=== PATIENT | female | born 1965 | race Caucasian/White ===

== ENCOUNTER → 2017-11-16 | Outpatient (CLI) | payer MEDICAID ==
[2017-11-16 11:34] LABS: EOS # 0.1 (0.04-0.40); EOS % 1.4 % (1.0-5.0); HEMATOCRIT 54.1 % (37.0-47.0); HEMOGLOBIN 17.7 g/dL (12.5-16.0); LYMPH# 2.7 (1.50-4.00); MEAN CELL VOLUME 95 fl (78-100); MEAN CORPUSCULAR HEMOGLOBIN 31 pg (27-31); MEAN CORPUSCULAR HGB CONC 33 g/dL (33-37); MEAN PLATELET VOLUME 10.2 fl (7.4-10.4); MONO # 0.9 (0.20-0.80); PLATELET COUNT 232 K/mm3 (130-400); RED BLOOD COUNT 5.72 M/mm3 (4.10-5.30); RED CELL DISTRIBUTION WIDTH 13.9 % (11.5-14.5); WHITE BLOOD COUNT 8.8 K/mm3 (4.8-10.8)
[2017-11-16 11:50] LABS: ALBUMIN 4.4 g/dL (3.5-5.0); BUN/CREATININE RATIO 9.1 (6.0-26.0); CALCIUM 9.3 mg/dL (8.4-10.2); POTASSIUM 4.4 mmol/L (3.6-5.0); TOTAL BILIRUBIN 0.3 mg/dL (0.2-1.3)
== END ==
LOC: RAD 10:45 → MAMMO 10:45 → LAB 10:53 → MAMMO 10:53
PROVIDERS: Family Medicine
DX: Z12.31 Encounter for screening mammogram for malignant neoplasm of breast (principal); Z79.899 Other long term (current) drug therapy

== ENCOUNTER → 2019-04-12 | Outpatient (CLI) | payer MEDICAID | LOC: MAMMO 08:49 | DX: Z12.31 Encounter for screening mammogram for malignant neoplasm of breast (principal) ==

== ENCOUNTER 2020-05-28 09:31 | Inpatient (IN) | payer MEDICAID ==
[~2020-05-28] VITALS: Ht 165.1 cm; Wt 89.0 kg
[~2020-05-28 09:31] MED LIST: BENADRYL PO; BUSPAR 15MG TAB15 MG PO; CELEXA 20MG20 MG/TA1 PO; CLONAZEPAM2 MG PO; FERROUS SULFAT325 M4 PO; FOLIC ACID1 MG PO; HYDROXYZINE HCL25 M1 PO; NEURONTIN300 M1 PO; OXYCODONE HCL10 M1 PO; PREDNISONE20 M1 PO; PROAIR HFA0.09 MG/AC IH; SEROQUEL 1100 MG/TAB PO; SEROQUEL300 M1 PO; WELLBUTRIN 75MG75 MG PO; ZANAFLEX CAPSULE2 MG PO; ZITHROMAX Z PA250 MG PO
[2020-05-28 10:26] LABS: HEMATOCRIT 54.3 % (37.0-47.0); MEAN CELL VOLUME 92 fl (78-100); MEAN CORPUSCULAR HEMOGLOBIN 31 pg (27-31); MEAN CORPUSCULAR HGB CONC 33 g/dL (33-37); MEAN PLATELET VOLUME 11.1 fl (7.4-10.4); PLATELET COUNT 170 K/mm3 (130-400); RED BLOOD COUNT 5.91 M/mm3 (4.10-5.30); WHITE BLOOD COUNT 17.6 K/mm3 (4.8-10.8)
[2020-05-28 10:36] LABS: LYMPHOCYTE 9 % (20-51); MONOCYTE 6 % (3-10); NEUTROPHILS 85 % (42-75)
[2020-05-28 10:40] LABS: ALBUMIN 4.3 g/dL (3.5-5.0); POTASSIUM 3.9 mmol/L (3.5-5.1); SODIUM 141 mmol/L (136-145)
[2020-05-28 10:41] LABS: CALCIUM 9.5 mg/dL (8.3-10.5)
[2020-05-28 10:43] LABS: GLUCOSE 133 mg/dL (65-105); TOTAL PROTEIN 7.2 g/dL (6.4-8.3)
[2020-05-28 10:44] LABS: CARBON DIOXIDE 26 mmol/L (22-29); TOTAL BILIRUBIN 0.8 mg/dL (0.2-1.2)
[2020-05-28 10:48] LABS: ALCOHOL IN-HOUSE < 10 mg/dL (<10); AST-SGOT 37 U/L (5-34)
[2020-05-28 10:49] LABS: ALT/SGPT 41 U/L (0-55)
[2020-05-28 10:50] LABS: LIPASE 320 U/L (8-78)
[2020-05-28 11:06] LABS: TROPONIN-I < 0.03 ng/mL (<0.030)
[2020-05-28 11:26] LABS: URINE APPEARANCE CLOUDY; URINE BILIRUBIN NEGATIVE (NEGATIVE); URINE BLOOD 50 ery/uL (NEGATIVE); URINE COLOR YELLOW; URINE GLUCOSE NEGATIVE (NEGATIVE); URINE KETONE 2+ (NEGATIVE); URINE LEUKOCYTE ESTERASE TRACE (NEGATIVE); URINE NITRATE NEGATIVE (NEGATIVE); URINE PROTEIN(semi-quant) 2+ mg/dL (NEGATIVE); URINE UROBILINOGEN NORMAL (NORMAL)
[2020-05-28 11:27] LABS: URINE MUCUS PRESENT (NOT PRESENT)
[2020-05-28 14:20] VITALS: BP 138/54
--- NOTE | 2020-05-28 14:20 | NUR ---
Patient brought to room 206 from ed in . Patient is alert and oriented, c/o of abd pain, breathing is eval and unlabored. Orders and medications reviewed. Patient is NPO. IV fluids infusing in left AC. Patient denies nausea, tarado given. Call light in reach, will monitor.
[2020-05-28 14:32] VITALS: BP 138/54
--- NOTE | 2020-05-28 16:18 | NUR ---
Patient is sleeping in room. IV fluiuds infusing per MAR. Call light is in reach, will continue to monitor.
[2020-05-28 17:24] VITALS: BP 126/80
[2020-05-28 17:42] VITALS: BP 126/80
--- NOTE | 2020-05-28 19:14 | NUR ---
Report given to ALCON Fernandez.
--- NOTE | 2020-05-28 20:30 | NUR ---
PT IS NOT ORIENTATED TO PLACE. CAN STATE IN HOSPITAL BED. SHE IS ORIENTATED TO PERSON. SHE WAS INCONTINENT OF URINE. WAS ABLE TO AMBULATE TO RESTROOM WITH CANE AND STANDBY ASSISTANCE. IV IS PATENT WITHOUT SWELLING OR PAIN. PT DOES APPEAR TO BE SLURRING SPEAK BUT FOLLOWS COMMANDS.
[2020-05-28 22:00] VITALS: BP 120/64
--- NOTE | 2020-05-28 22:00 | NUR ---
NOTED THAT SATURATION WAS 90% WHILE PT IS AWAKE. DISCUSSED WITH CHEIKH AND AN ORDER WAS PLACED FOR O2. O2 PER NC WAS PLACED ON PT. SATURATION 95%.
[2020-05-29 02:00] VITALS: BP 121/73
--- NOTE | 2020-05-29 02:44 | NUR ---
PT C/O PAIN 7/10 2MG OF MORPHINE GIVEN IV.
[2020-05-29 06:00] VITALS: BP 123/80
[2020-05-29 06:03] LABS: EOS # 0.1 (0.04-0.40); EOS % 1.1 % (1.0-5.0); HEMATOCRIT 46.4 % (37.0-47.0); HEMOGLOBIN 15.2 g/dL (12.5-16.0); LYMPH# 2.4 (1.50-4.00); MEAN CELL VOLUME 94 fl (78-100); MEAN CORPUSCULAR HEMOGLOBIN 31 pg (27-31); MEAN CORPUSCULAR HGB CONC 33 g/dL (33-37); MEAN PLATELET VOLUME 11.1 fl (7.4-10.4); MONO # 1.3 (0.20-0.80); NEU # 6.8 (1.40-6.50); PLATELET COUNT 142 K/mm3 (130-400); RED BLOOD COUNT 4.92 M/mm3 (4.10-5.30); RED CELL DISTRIBUTION WIDTH 14.2 % (11.5-14.5); WHITE BLOOD COUNT 10.7 K/mm3 (4.8-10.8)
[2020-05-29 06:20] LABS: POTASSIUM 3.7 mmol/L (3.5-5.1)
--- NOTE | 2020-05-29 06:26 | NUR ---
PT UP TO RESTROOM WANTING TO SIT ON TOILET FOR AWHILE. STATES WILL PULL STRING WHEN READY TO HEAD BACK TO BED.
--- NOTE | 2020-05-29 06:36 | NUR ---
PT REPORTING PAIN 03/28. MORPHINE 2 MG IVP GIVEN.
--- NOTE | 2020-05-29 07:03 | NUR ---
REPORT GIVEN TO PENNY RONDON
--- NOTE | 2020-05-29 08:40 | NUR ---
PATIENT PLACED ON ROOM AIR AT THIS TIME.
--- NOTE | 2020-05-29 09:22 | NUR ---
PATIENT HEARD YELLING OUT FOR HELP AT NURSES STATION. THIS NURSE PROMPTLY IN ROOM. UPON ENTERING ROOM PATIENT LYING IN BED WITH EHAD OF BED ELEVATED. STATES"MY FOOT HURTS. THE ARCH OF MY FOOT HURTS ALL THE SUDDEN. PATIENT SOCK REMOVED NO NOTICABLE INJURY TO AREA. PATIENT STATES "SOMETIMES THIS HAPPENS TO ME MY ARCH OF MY FOOT STARTS TO HURT" PATIENT NO LONGER REPORTING ANY PAIN AFTER A MINUTE OR 2. PATIENT STATES TO THIS NURSE "CAN I HAVE MY OXYGEN BACK ON" ASKED PATIENT IF SHE WAS EXPERIENCING SHORTNESS OF BREATH STATES "YES I AM" RESPIRATIONS UNLABORED. [id number]% ON ROOM AIR. PATIENT'S HEART RATE 48 RADIAL. PATIENT SEEMS A LITTLE MORE DROWSY THAN WHEN IN PATIENT'S ROOM PRIOR TO GIVING MEDICATIONS. PATIENT REPORTS HAVING PAIN REQUESTING PAIN MEDICATION. PATIENT INFORMED MEDICATION IS NOT DUE UNTIL 1030. PATIENT PLACED ON OXYGEN 2L. SP02 UP TO 93% ON 2L. HEART RATE 44. BLOOOD PRESSURE 125/77 RR 18. ASKED PATIENT IF SHE WAS EXPERIENCING ANY CHEST PAIN STATES "IT FEELS YAW TIGHT, WHEN I COUGH I HAVE SOME DISCOMFORT" Rogelio MENDOZA APRN NOTIFIED.
[2020-05-29 10:07] VITALS: BP 126/81
--- NOTE | 2020-05-29 10:55 | NUR ---
Rogelio MENDOZA FRUIT GRADING SUPERVISOR IN TO SEE PATIENT AT THIS TIME.
[2020-05-29 12:17] LABS: D-DIMER 2.15 mg/L FEU (0.15-0.50)
[2020-05-29 14:16] VITALS: BP 138/80
[2020-05-29 18:15] VITALS: BP 143/85
--- NOTE | 2020-05-29 18:16 | NUR ---
Gave crayons and coloring pages for Jackie.
--- NOTE | 2020-05-29 19:45 | NUR ---
Report received from Merline RONDON. Resting supine in bed watching TV. Oxygen in place at 2L/NC. Rates pain to abdomen area 03/28. Also requesting PRN inhaler. INT patent to Arjun GONGORA. Assessment completed. HS medications give now per request. PRN AZO, Albuterol inhaler and IV Fentanyl given at this time.
[2020-05-29 22:56] VITALS: BP 109/65
--- NOTE | 2020-05-30 01:06 | NUR ---
Resting well. Calls for assist to BR PRN. Has been incontinent of urine. HR low to mid 50's.
[2020-05-30 02:17] VITALS: BP 109/56
[2020-05-30 05:50] VITALS: BP 134/80
--- NOTE | 2020-05-30 06:15 | NUR ---
Rested well all shift. No further request for analgesic. HR 50's-low 60's all night.
--- NOTE | 2020-05-30 06:58 | NUR ---
Report to Aimee RONDON.
--- NOTE | 2020-05-30 07:50 | NUR ---
WALKING IN ROOM WITH ROUTER OPERATOR PIN. REPORTS DISCOMFORT TO LLQ; RATES 9/10. REPORTS HAVING A RECENT BM AND THOUGHT THIS WOULD RELIEVE DISCOMFORT. PRN FENTANYL PROVIDED. GAIT STEADY; USES CANE. ALSO REPORTS MID BACK PAIN. TALKATIVE. PATIENT MENTIONS RECENTLY CUTTING BACK ON SMOKING AND SUBSEQUENTLY HAS A COUGH. SPUTUM THICK AND PALE GREEN. FINE CRACKLES TO BILAT LUNG BASES. OXYGEN IN PLACE PER NC AND DECREASED FROM 2LPM TO 1LPM.
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
--- NOTE | 2020-05-30 08:50 | NUR ---
HOB ELEVATED. REPORTS DECREASED PAIN. WHEN ASKED TO RATE ON NUMERICAL SCALE, PATIENT STATES "WELL I'M NOT MOVING AROUND RIGHT NOW."
[2020-05-30 09:44] VITALS: BP 143/84
--- NOTE | 2020-05-30 11:03 | NUR ---
SA02 93% ON 1LPM VIA NC. OXYGEN TURNED OFF AT THIS TIME.
--- NOTE | 2020-05-30 12:58 | NUR ---
IN BED ON RT SIDE. OXYGEN REMAINS OFF. ROOM AIR SATURATION IS 92% WITH PULSE 61. RESP EVEN AND UNLABORED. PRN PO PAIN MED PROVIDED FOR LT LOW BACK DISCOMFORT.
--- NOTE | 2020-05-30 13:37 | NUR ---
PATIENT AMBULATES IN HALLWAY WITHOUT OXYGEN. ROOM AIR SATURATION DROPPED TO 89% BRIEFLY, BUT FOR THE MOST PART, STAYED 91-92% ON ROOM AIR. CHARLES HOLMAN NOTIFIED.
[2020-05-30 13:52] VITALS: BP 126/81
--- NOTE | 2020-05-30 14:45 | NUR ---
PATIENT WOULD LIKE TO DISCHARGE HOME. STATES "I'M NOT ON OXYGEN ANYMORE. THERE REALLY IS NO REASON TO BE HERE. I NEED TO KNOW A TIME BECAUSE I WILL NEED TO GIVE IRENE A NOTICE."
--- NOTE | 2020-05-30 15:10 | NUR ---
PATIENT AGAIN ASKS ABOUT DISCHARGE HOME. CHARLES HOLMAN NOTIFIED.
[2020-05-30] MEDS ORDERED: CIPRO 500MG TA500 MG PO (15:20)
--- NOTE | 2020-05-30 15:40 | NUR ---
DC INSTRUCTIONS REVIEWED WITH PATIENT. COPY OF DISCHARGE MED LIST PROVIDED AND MEDS DUE FOR PM DOSE HIGHLIGHTED FOR PATIENT. IRENE ON WAY TO FACILITY FOR TRANSPORTATION HOME. PATIENT EXCITED TO BE GOING HOME. TELE AND INT DISCONTINUED.
--- NOTE | 2020-05-30 15:49 | NUR ---
PATIENT ESCORTED OUT OF FACILITY WITH AUTO RENTAL SUPERVISOR.
== END 2020-05-30 15:50 | disposition home or self-care (01) | DRG 439 ==
LOC: ED 09:31 → MED/SURG 12:02
PROVIDERS: Nurse Practitioner Primary Care; ADMIT Physician Assistant
DX: K85.90 Acute pancreatitis without necrosis or infection, unspecified (principal); N39.0 Urinary tract infection, site not specified; K21.9 Gastro-esophageal reflux disease without esophagitis; F20.9 Schizophrenia, unspecified; R00.1 Bradycardia, unspecified; Z79.891 Long term (current) use of opiate analgesic; Z87.891 Personal history of nicotine dependence; Z88.6 Allergy status to analgesic agent; Z88.8 Allergy status to other drugs, medicaments and biological substances
CPT/HCPCS: C9113; J0696; J1650; J1885; J2270; J2405; J3010; J7030; Q9967

== ENCOUNTER 2020-12-10 08:57 | Outpatient (RCR) | payer MEDICAID ==
[~2020-12-10 08:57] MED LIST changes: +CIPRO 500MG TA500 MG PO
== END 2021-03-10 | disposition home or self-care (01) ==
LOC: PT
DX: M79.604 Pain in right leg (principal); M79.605 Pain in left leg

== ENCOUNTER → 2021-08-25 | Outpatient (CLI) | payer MEDICAID | LOC: MAMMO 09:11 | DX: Z12.31 Encounter for screening mammogram for malignant neoplasm of breast (principal) ==